=== PATIENT | male | born 1995 | race Caucasian/White ===

== ENCOUNTER 2017-01-04 18:59 | Emergency (ER) | payer MEDICAID ==
[~2017-01-04] VITALS: Ht 172.7 cm; Wt 72.0 kg
[2017-01-04 19:01] VITALS: BP 124/74; PULSE 93; RESP 12; TEMP 99; O2SAT 100
[2017-01-04] MEDS ORDERED: DEXAMETHASONE SOD PHOS 4 MG/ML VIAL IM ONE (19:30)
--- NOTE | 2017-01-04 19:35 | PD ---
HPI Chief Complaint: ENT Complaint Time Seen by Provider: 19:18 Travel History International Travel<30 days: No Contact w/Intl Traveler<30days: No Traveled to known affect area: No History of Present Illness HPI 21-year-old male presents for evaluation of sore throat. Symptom onset 1.5 weeks ago. It hurts to swallow. Associated with fevers as high as 101. Denies cough or congestion, rash or recent travel. No sick contacts. He began using leftover amoxicillin 3 days ago, he was seen at an outside emergency 2 days ago. He reports that he had a positive rapid strep screen and he was diagnosed with streptococcal pharyngitis. He was prescribed Augmentin which she began taking yesterday. The sore throat has persisted which prompted evaluation today. He reports that the sore throat isn't any worse but it is not any better. He has had no stridor or drooling. He has been tolerating oral hydration. No other complaints. PFSH Past Medical History Medical History: Denies Significant Hx Diminished Hearing: No Tetanus Vaccination: > 5 Years Influenza Vaccination: No Past Surgical History Appendectomy: Yes Social History Alcohol Use: Yes (rare) Tobacco Use: No Substance Use: No Allergies-Medications (Allergen,Severity, Reaction): Coded Allergies: No Known Allergies (Unverified , 01/04/17) Reported Meds & Prescriptions Reported Meds & Active Scripts Active No Active Prescriptions or Reported Medications Review of Systems General / Constitutional: Positive: Fever HENT: Positive: Sore Throat, No: Rhinitis, Congestion Respiratory: No: Cough Physical Exam Narrative GENERAL: Well-developed well-nourished male in no acute distress. Voice is not hoarse or muffled, no stridor or drooling. SKIN: Warm and dry. HEAD: Atraumatic. Normocephalic. EYES: Pupils equal and round. No scleral icterus. No injection or drainage. ENT: No nasal bleeding or discharge. Mucous membranes pink and moist. There is oropharyngeal erythema and exudate formation. Uvula midline with no mass effect. NECK: Trachea midline. No JVD. There is no lymphadenopathy. Neck is supple full range of motion. Data Data Last Documented VS Vital Signs Date Time Temp Pulse Resp B/P Pulse Ox O2 Delivery O2 Flow Rate FiO2 01/04/17 19:01 99.0 93 12 124/74 100 Orders Dexamethasone Inj (Decadron Inj) (01/04/17 19:30) [facility] Medical Decision Making Medical Screen Exam Complete: Yes Emergency Medical Condition: Yes Medical Record Reviewed: Yes Differential Diagnosis Exudative pharyngitis, tonsillitis, peritonsillar abscess, infectious mononucleosis, herpangina, epiglottitis, retropharyngeal abscess Narrative Course 21-year-old male with 1.5 weeks of sore throat, on day 2 of Augmentin, took 2 days of left over amoxicillin prior to that. He had a positive rapid strep screen performed at an outside emergency room 2 days ago. Examination is consistent with exudative pharyngitis. He appears well. He does not appear dehydrated or septic. The patient will be given a shot of Decadron here. He is encouraged to complete the entire course of Augmentin and return for any acutely new or worsening symptoms. He is stable for discharge. Diagnosis Primary Impression: Streptococcal tonsillopharyngitis Additional Instructions: Complete the entire prescription of Augmentin as prescribed. Stay well hydrated and well-nourished. Take [id number] Tylenol or Motrin for discomfort. Return for any acutely new or worsening symptoms. Med/Other Pt SpecificInfo: No Change to Meds Scripts No Active Prescriptions or Reported Meds Disposition: 01 DISCHARGE HOME Condition: Stable Kevin Osorio Jan 04, 2017 19:35
== END 2017-01-04 20:01 | disposition home or self-care (01) ==
LOC: NEPK 18:59
DX: J02.0 Streptococcal pharyngitis (principal); R50.9 Fever, unspecified
CPT/HCPCS: 96372; 99283; J1100